=== PATIENT | female | born 2000 | race Caucasian/White ===

== ENCOUNTER → 2022-10-17 07:58 | Outpatient (CLI) | payer OTHER, SELFPAY ==
[2022-10-17 19:00] LABS: Basophils # 0.1 K/mm3 (0-0.2); Basophils % 0.9 % (0.1-2.0); Eosinophils # 0.2 K/mm3 (0.0-0.4); Eosinophils % 2.5 % (0.1-12.0); Hematocrit 45.6 % (37.0-47.0); Hemoglobin 14.7 g/dL (12.2-16.2); Lymphocytes # 2.2 K/mm3 (0.7-4.5); Lymphocytes % 24.4 % (10-50); Mean Corpuscular HGB Conc 32.2 g/dL (31.8-35.4); Mean Corpuscular Volume 90.1 fl (81-99); Monocytes # 0.4 K/mm3 (0.1-1.0); Monocytes % 4.3 % (1.7-9.3); Neutrophils # 6.2 K/mm3 (1.8-7.8); Platelet Count 350 K/mm3 (142-424); Red Blood Count 5.06 M/mm3 (4.20-5.40); Red Cell Distribution Width 14.2 % (11.5-17.5); White Blood Count 9.1 K/mm3 (4.8-10.8)
[2022-10-17 19:02] LABS: Chloride 105 mmol/L (98-107)
[2022-10-17 19:03] LABS: Potassium 4.3 mmoL/L (3.5-5.1); Sodium 141 mmol/L (136-145)
[2022-10-17 19:05] LABS: Alanine Aminotransferase 23 U/L (12-78); Anion Gap 14.3 mEq/L (5-15); Aspartate Amino Transferase 28 U/L (14-36); Blood Urea Nitrogen 13 mg/dl (7-17); Carbon Dioxide 26 mmol/L (22.0-30.0); Estimated Glomerular Filt Rate 126 ml/min (>60); GFR (African American) 153 ML/MIN (>60)
[2022-10-17 19:06] LABS: Albumin Level 4.8 g/dl (3.5-5.0); Albumin/Globulin Ratio 1.5 (1.1-1.8); Alkaline Phosphatase 66 U/L (38-126); Bilirubin,Total 0.4 mg/dl (0.2-1.3); Calcium 9.7 mg/dl (8.4-10.2); Chol/HDL Ratio 3.1 (1-3.5); Cholesterol 208 mg/dl (140-200); Globulin 3.2 g/dL (1.3-3.2); Glucose 96 mg/dl (74-100); HDL Cholesterol 68 mg/dl (40-60); Triglycerides 90 mg/dl (30-150); VLDL Cholesterol 18 mg/dL (0-40)
[2022-10-17 19:14] LABS: C-Reactive Protein 8.5 mg/L (0-4)
[2022-10-17 19:17] LABS: Erythrocyte Sedimentation Rate 14 mm/hr (0-20)
[2022-10-17 19:22] LABS: 25-OH Vitamin D, Total 16.4 ng/mL (30-100)
[2022-10-17 19:37] LABS: Thyroid Stimulating Hormone 1.13 uIU/mL (0.465-4.68)
[2022-10-19 11:17] LABS: RA Latex Turbid. <10.0 IU/mL (<14.0)
[2022-10-19 12:12] LABS: Anti-Cyclic Citrullinated Pept 0 units (0-19)
[2022-10-19 16:33] LABS: Anti-Centromere B Antibodies <0.2 AI (0.0-0.9); Anti-DNA (DS) Ab Qn <1 IU/mL (0-9); Anti-Jo-1 <0.2 AI (0.0-0.9); Anti-Smith Antibody <0.2 AI (0.0-0.9); Antichromatin Antibodies <0.2 AI (0.0-0.9); Antiscleroderma-70 Antibodies <0.2 AI (0.0-0.9); RNP Antibodies 0.2 AI (0.0-0.9); Sjogren's Anti-SS-A <0.2 AI (0.0-0.9); Sjogren's Anti-SS-B <0.2 AI (0.0-0.9)
[2022-10-19 16:33] LABS: Anti-DNA (DS) Ab Qn <1 IU/mL (0-9)
== END ==
PROVIDERS: PCP Physician Assistant; Visit Provider Physician Assistant
DX: R05.9 Cough, unspecified (principal); R30.0 Dysuria; M25.50 Pain in unspecified joint; E55.9 Vitamin D deficiency, unspecified
CPT/HCPCS: 80053; 80061; 82306; 84443; 85025; 85651; 86140; 86200; 86225; 86235; 86431; 87086

== ENCOUNTER → 2022-10-23 18:37 | Outpatient (CLI) | payer OTHER, SELFPAY | PROVIDERS: PCP Physician Assistant; Visit Provider Physician Assistant | DX: N39.0 Urinary tract infection, site not specified (principal); B95.4 Other streptococcus as the cause of diseases classified elsewhere | CPT/HCPCS: 87086; 87088; 87186 ==

== ENCOUNTER → 2022-11-05 14:30 | Outpatient (CLI) | payer OTHER, SELFPAY | PROVIDERS: PCP Physician Assistant; Visit Provider Physician Assistant | DX: M54.50 Low back pain, unspecified (principal) | CPT/HCPCS: 87086 ==

== ENCOUNTER 2022-11-08 11:16 | Emergency (ER) | payer OTHER, SELFPAY ==
[2022-11-08 11:28] VITALS: BP 146/72; PULSE 110; RESP 20; TEMP 37; O2SAT 100; BMI 34.7
[2022-11-08 11:53] VITALS: BP 141/70; PULSE 120; O2SAT 97
--- NOTE | 2022-11-08 11:57 | CT_ITS ---
FINAL REPORT TECHNIQUE: Axial images of the head were obtained without contrast. Coronal reformatted images were also obtained.This study was performed with techniques to keep radiation doses as low as reasonably achievable (ALARA). Individualized dose reduction techniques using automated exposure control or adjustment of mA and/or kV according to the patient's size were employed. CLINICAL HISTORY: seizure-headaches COMPARISON: none FINDINGS: There is no evidence of intracranial hemorrhage or mass. The ventricular size is within normal limits. There is no evidence of shift of the midline structures. No abnormal extra axial fluid collection is identified. No skull abnormality is seen on the bone window images. IMPRESSION: No acute intracranial abnormality. Reviewed, Interpreted and Dictated by Sean Figueroa III, MD Transcribed by Nicole Palacio Authenticated and [facility]
[2022-11-08 12:00] VITALS: BP 138/77; PULSE 100; O2SAT 98
[2022-11-08 12:15] VITALS: BP 140/82; PULSE 98; O2SAT 97
[2022-11-08 12:17] LABS: Microscopic, Urine URINE MICROSCOPIC (MICROSCOPIC)
[2022-11-08 12:19] LABS: Basophils # 0.1 K/mm3 (0-0.2); Basophils % 1.5 % (0.1-2.0); Eosinophils # 0.4 K/mm3 (0.0-0.4); Hematocrit 38.4 % (37.0-47.0); Hemoglobin 12.8 g/dL (12.2-16.2); Lymphocytes # 1.6 K/mm3 (0.7-4.5); Lymphocytes % 24.2 % (10-50); Mean Corpuscular HGB Conc 33.4 g/dL (31.8-35.4); Mean Corpuscular Hemoglobin 28.4 pg (27.0-31.2); Mean Corpuscular Volume 84.8 fl (81-99); Mean Platelet Volume 7.3 fl (7.4-10.4); Monocytes # 0.3 K/mm3 (0.1-1.0); Monocytes % 3.9 % (1.7-9.3); Neutrophils # 4.2 K/mm3 (1.8-7.8); Neutrophils % 64.3 % (37.0-80.0); Platelet Count 293 K/mm3 (142-424); Red Blood Count 4.52 M/mm3 (4.20-5.40); Red Cell Distribution Width 14.3 % (11.5-17.5); White Blood Count 6.6 K/mm3 (4.8-10.8)
[2022-11-08 12:31] LABS: Alanine Aminotransferase 24 U/L (12-78); Albumin Level 4.2 g/dl (3.5-5.0); Albumin/Globulin Ratio 1.4 (1.1-1.8); Alkaline Phosphatase 54 U/L (38-126); Anion Gap 11.8 mEq/L (5-15); Aspartate Amino Transferase 27 U/L (14-36); Bilirubin,Total 0.3 mg/dl (0.2-1.3); Blood Urea Nitrogen 11 mg/dl (7-17); Calcium 9.1 mg/dl (8.4-10.2); Carbon Dioxide 25 mmol/L (22.0-30.0); Chloride 110 mmol/L (98-107); Creatinine Clearance Estimated 228 mL/min (50-200); Estimated Glomerular Filt Rate 126 ml/min (>60); GFR (African American) 153 ML/MIN (>60); Globulin 3.1 g/dL (1.3-3.2); Glucose 97 mg/dl (74-100); Potassium 3.8 mmoL/L (3.5-5.1); Sodium 143 mmol/L (136-145); Total Protein,Serum 7.3 g/dl (6.3-8.2)
[2022-11-08 12:34] LABS: Appearance,Urine CLEAR (Clear); Bilirubin,Urine Negative (Negative); Blood, Urine Negative (Negative); Color,Urine YELLOW (Yellow); Glucose,Urine (UA) Negative (Negative); Ketones,Urine Negative (Negative); Leukocyte Esterase,Urine Negative (Negative); Nitrate,Urine Negative (Negative); PH,Urine 5.5 (5.0-8.5); Protein,Urine Negative (Negative); Specific Gravity, Urine <= 1.005 (1.005-1.030); Urobilinogen,Urine 0.2 EU/dl (0.2)
[2022-11-08 12:36] LABS: Urine Pregnancy, HCG Qual. Negative (Negative)
[2022-11-08 12:53] LABS: WBC,Urine Occasional #/hpf (0-3)
[2022-11-08 12:58] LABS: Amphetamine/Metha Screen,Urine Negative ng/ml (<1000)
[2022-11-08 12:59] LABS: Barbiturates Screen,Urine Negative ng/ml (<200)
[2022-11-08 13:00] LABS: Benzodiazepines Screen,Urine Negative ng/ml (<200); Cannabinoid Screen,Urine Negative ng/ml (<50)
[2022-11-08 13:01] LABS: Cocaine Screen,Urine Negative ng/ml (<300)
[2022-11-08 13:02] LABS: Methadone Screen,Urine Negative ng/ml (<300)
[2022-11-08 13:03] LABS: Opiate Screen,Urine Negative ng/ml (<300)
[2022-11-08 13:04] LABS: Phencyclidine Screen,Urine Negative ng/ml (<25)
--- NOTE | 2022-11-08 14:38 | HMH.EDGENADL ---
Discharge Plan Disposition Patient Disposition: Home, Self-Care Condition: Good Prescriptions Prescriptions: No Action penicillin V potassium 500 mg tablet 500 mg PO QID Qty: 40 0RF venlafaxine [Effexor XR] 37.5 mg capsule,extended release 24hr 37.5 mg PO DAILY Qty: 90 0RF Vraylar 1.5 mg capsule 1.5 mg PO DAILY Qty: 30 1RF fluticasone propionate [Flonase Allergy Relief] 50 mcg/actuation spray,suspension 1 spray intranasal QDAY 30 Days Qty: 9.9 0RF Rx Instructions: administer into each nostril ergocalciferol (vitamin D2) 1,250 mcg (50,000 unit) capsule 1,250 mcg PO WEEKLY Qty: 14 3RF cholecalciferol (vitamin D3) 50 mcg (2,000 unit) capsule 50 mcg PO DAILY Qty: 90 3RF Referrals Follow up/Referrals: Provider,Referral, MD [Primary Care Provider] - See instructions Activity Restrictions/Add. Instructions Additional Instructions/Restrictions: Continue current medications and follow-up with your primary care provider and counselor. Additional instructions for SEIZURE OR LOSS OF CONSCIOUSNESS/POSSIBLE SEIZURE/SEIZURE-LIKE ACTIVITY: NO DRIVING, BIKE RIDING, SWIMMING, TUB BATHING, LADDERS UNTIL CLEARED BY DOCTOR. NO ALCOHOL OR STREET DRUGS. GET 8 HOURS OF SLEEP PER NIGHT. RETURN IF SEIZURE RECURS. Clinical Impressions Clinical Impression: Pseudoseizure, Conversion disorder Instructions Patient Instructions: Conversion Disorder, Psychogenic Nonepileptic Seizures Discharge ED Provider: Eros Boland General Adult HPI General Chief complaint: Seizure Stated complaint: seizure Time Seen by Provider: 11/08/22 14:38 Mode of Arrival: EMS Source of Information: Patient Limitations: No Limitations Description of Symptoms (Recalled from ER Triage Doc. by RN): pt to ed c/o seizure. pt states she has a hx of conversion reactions. pt states her episodes are random and uncontrolled. episodes last approx 20 seconds with no postictal state. pt states she is weak. pt states she has been having headaches regularly. History of Present Illness HPI narrative: The patient is brought in by ambulance. She says she had a seizure . She says she has a history of seizure-like activity but has been diagnosed as having a conversion disorder. She does not require any anticonvulsant medication. She is on mood stabilizers. She says she was at her counselors today and began feeling odd and then reportedly had brief seizure-like activity without postictal state. States she has been sick for about a month. She has had bilateral ear infections and urinary tract infection. She was treated for that and then on 11/05/2022 saw her primary care provider, Carrol Wyatt, and was diagnosed with strep throat and a UTI. She has been on penicillin for that. Her throat is feeling better. Related Data Previous Rx's Medication Instructions Recorded cariprazine 1.5 mg capsule 1.5 mg PO DAILY #30 caps 09/25/22 (Vraylar) venlafaxine 37.5 mg 37.5 mg PO DAILY #90 caps 09/25/22 capsule,extended release 24 hr (Effexor XR) fluticasone propionate 50 1 spray intranasal QDAY 30 days 10/17/22 mcg/actuation nasal #9.9 grams spray,suspension (Flonase Allergy Relief) cholecalciferol (vitamin D3) 50 50 mcg PO DAILY #90 caps 10/19/22 mcg (2,000 unit) capsule ergocalciferol (vitamin D2) 1,250 1,250 mcg PO WEEKLY #14 caps 10/19/22 mcg (50,000 unit) capsule penicillin V potassium 500 mg 500 mg PO QID #40 tabs 11/05/22 tablet Allergies Allergy/AdvReac Type Severity Reaction Status Date / Time No Known Allergies Allergy Verified 11/05/22 14:31 [facility] Disclaimer: The information contained in this section may have been updated after the patient was seen, as this information can be updated by other users. Medical History Conversion disorder Posttraumatic stress disorder Psychosis Family History Fa
[2022-11-08 15:05] VITALS: BP 116/55; PULSE 82; RESP 18; TEMP 37; O2SAT 99
== END 2022-11-08 15:05 | disposition home or self-care (01) ==
PROVIDERS: Emergency Provider Emergency Medicine
DX: R56.9 Unspecified convulsions (principal); F44.4 Conversion disorder with motor symptom or deficit; F43.89 Other reactions to severe stress; Z81.8 Family history of other mental and behavioral disorders; Z82.49 Family history of ischemic heart disease and other diseases of the circulatory system; Z83.42 Family history of familial hypercholesterolemia; Z83.2 Family history of diseases of the blood and blood-forming organs and certain disorders involving the immune mechanism; Z82.5 Family history of asthma and other chronic lower respiratory diseases
CPT/HCPCS: 70450; 80053; 80305; 81001; 81025; 85025; 99285

== ENCOUNTER 2022-11-27 10:10 | Emergency (ER) | payer OTHER, SELFPAY ==
[2022-11-27] VITALS (8 sets, daily range): BP systolic 102–133; BP diastolic 55–99; PULSE 72–109; RESP 18; TEMP 36.7–37; O2SAT 96–99; BMI 33.9
--- NOTE | 2022-11-27 10:39 | PC.NURSE ---
DR MARSHALL AT BEDSIDE
--- NOTE | 2022-11-27 10:39 | PC.NURSE ---
TROY HINTON at
[2022-11-27 10:53] LABS: Microscopic, Urine URINE MICROSCOPIC (MICROSCOPIC)
[2022-11-27 10:55] LABS: Appearance,Urine CLEAR (Clear); Bilirubin,Urine Negative (Negative); Blood, Urine 2+ (Negative); Color,Urine YELLOW (Yellow); Glucose,Urine (UA) Negative (Negative); Ketones,Urine Negative (Negative); Leukocyte Esterase,Urine TRACE (Negative); Nitrate,Urine Negative (Negative); PH,Urine 5.5 (5.0-8.5); Protein,Urine Negative (Negative); Urobilinogen,Urine 0.2 EU/dl (0.2)
--- NOTE | 2022-11-27 10:56 | HMH.EDGENADL ---
Discharge Plan Disposition Patient Disposition: Home, Self-Care Condition: Good Prescriptions Prescriptions: No Action chlorpromazine 50 mg tablet 50 mg PO .COMPLEX Qty: 45 2RF Rx Instructions: 50 mg orally take 1/2 tablet in the am; and 1 tablet at bedtime; venlafaxine [Effexor XR] 37.5 mg capsule,extended release 24hr 37.5 mg PO DAILY Qty: 90 0RF penicillin V potassium 500 mg tablet 500 mg PO QID Qty: 40 0RF fluticasone propionate [Flonase Allergy Relief] 50 mcg/actuation spray,suspension 1 spray intranasal QDAY 30 Days Qty: 9.9 0RF Rx Instructions: administer into each nostril ergocalciferol (vitamin D2) 1,250 mcg (50,000 unit) capsule 1,250 mcg PO WEEKLY Qty: 14 3RF cholecalciferol (vitamin D3) 50 mcg (2,000 unit) capsule 50 mcg PO DAILY Qty: 90 3RF Referrals Follow up/Referrals: Carrol Wyatt PA [Primary Care Provider] - See instructions Clinical Impressions Clinical Impression: Abdominal pain, Diarrhea Instructions Patient Instructions: DI for Acute Abdominal Pain Discharge ED Provider: Beau Acosta General Adult HPI General Chief complaint: Abdominal Pain Stated complaint: RT abd pain vomiting bloody stool fever Time Seen by Provider: 11/27/22 10:15 Mode of Arrival: Ambulatory Limitations: No Limitations Description of Symptoms (Recalled from ER Triage Doc. by RN): PT REPORTS RIGHT SIDED ABDOMINAL PAIN SINCE SATURDAY. PAIN WAS WORSE YESTERDAY. VOMITING LAST NIGHT, FEVER AND ONE EPISODE OF BLOODY DIARRHEA. RECENTLY FINISHED ABX FOR PNEUMONIA ADN STREP. LAST TOOK TYLENOL THIS AM History of Present Illness HPI narrative: This is a 22-year-old female with history of chronic gastritis numerous polyps identified on colonoscopy status post removal (none were cancerous or needed follow-up), IBS with chronic diarrhea who is presenting with diarrhea and abdominal pain. Patient states that she is struggled with diarrhea for months and years. She has received upper GI scope demonstrating peptic ulcer disease and gastritis without obvious acute bleed. She has also received colonoscopy during which numerous polyps were removed, however none were considered cancerous or requiring follow-up. Patient also has recent history of numerous infections including strep pharyngitis, pneumonia, UTI for which she just ended antibiotic course. She has been having diarrhea for the past 1 week. Initially 1 episode of bright to dark blood, but no blood since day 1 of diarrhea. She has since developed abdominal pain that is lower abdominal, cramping, 6-8 out of 10, does not radiate. Associated with decreased p.o. intake, but no objective fevers, overlying skin changes, urinary symptoms, neurologic deficits, chest pain, shortness of breath, or any other concerns. Related Data Previous Rx's Medication Instructions Recorded fluticasone propionate 50 1 spray intranasal QDAY 30 days 10/17/22 mcg/actuation nasal #9.9 grams spray,suspension (Flonase Allergy Relief) cholecalciferol (vitamin D3) 50 50 mcg PO DAILY #90 caps 10/19/22 mcg (2,000 unit) capsule ergocalciferol (vitamin D2) 1,250 1,250 mcg PO WEEKLY #14 caps 10/19/22 mcg (50,000 unit) capsule penicillin V potassium 500 mg 500 mg PO QID #40 tabs 11/05/22 tablet chlorpromazine 50 mg tablet 50 mg PO .COMPLEX #45 tabs 11/23/22 venlafaxine 37.5 mg 37.5 mg PO DAILY #90 caps 11/23/22 capsule,extended release 24 hr (Effexor XR) Allergies Allergy/AdvReac Type Severity Reaction Status Date / Time No Known Allergies Allergy Verified 11/23/22 11:34 [facility] Disclaimer: The information contained in this section may have been updated after the patient was seen, as this information can be updated by other users. Medical History Conversion disorder Posttraumatic stress disorder Psychosis Family History Father
[2022-11-27 10:57] LABS: Basophils # 0.1 K/mm3 (0-0.2); Basophils % 1.1 % (0.1-2.0); Eosinophils # 0.3 K/mm3 (0.0-0.4); Eosinophils % 4.2 % (0.1-12.0); Hematocrit 42.9 % (37.0-47.0); Hemoglobin 13.9 g/dL (12.2-16.2); Lymphocytes # 1.6 K/mm3 (0.7-4.5); Lymphocytes % 20.9 % (10-50); Mean Corpuscular HGB Conc 32.5 g/dL (31.8-35.4); Mean Corpuscular Hemoglobin 28.6 pg (27.0-31.2); Mean Platelet Volume 7.3 fl (7.4-10.4); Monocytes # 0.4 K/mm3 (0.1-1.0); Monocytes % 5.4 % (1.7-9.3); Neutrophils # 5.3 K/mm3 (1.8-7.8); Neutrophils % 68.4 % (37.0-80.0); Platelet Count 250 K/mm3 (142-424); Red Blood Count 4.87 M/mm3 (4.20-5.40); Red Cell Distribution Width 14.6 % (11.5-17.5); White Blood Count 7.8 K/mm3 (4.8-10.8)
[2022-11-27 11:04] LABS: Chloride 109 mmol/L (98-107); Potassium 4.3 mmoL/L (3.5-5.1); Sodium 142 mmol/L (136-145)
[2022-11-27 11:07] LABS: Alanine Aminotransferase 20 U/L (12-78); Albumin Level 4.6 g/dl (3.5-5.0); Albumin/Globulin Ratio 1.3 (1.1-1.8); Alkaline Phosphatase 58 U/L (38-126); Anion Gap 9.3 mEq/L (5-15); Aspartate Amino Transferase 24 U/L (14-36); Bilirubin,Total 0.6 mg/dl (0.2-1.3); Blood Urea Nitrogen 10 mg/dl (7-17); Calcium 9.2 mg/dl (8.4-10.2); Carbon Dioxide 28 mmol/L (22.0-30.0); Creatinine Clearance Estimated 191 mL/min (50-200); Estimated Glomerular Filt Rate 106 ml/min (>60); GFR (African American) 128 ML/MIN (>60); Globulin 3.5 g/dL (1.3-3.2); Glucose 98 mg/dl (74-100); Lipase 46 U/L (23-300); Total Protein,Serum 8.1 g/dl (6.3-8.2)
[2022-11-27 11:08] LABS: Lactic Acid 1.1 mmol/L (0.7-2.1)
[2022-11-27 11:09] LABS: HCG Qualitative, Serum Negative (Negative)
[2022-11-27 11:09] LABS: Bacteria,Urine Trace /lpf; WBC,Urine Occasional #/hpf (0-3)
--- NOTE | 2022-11-27 11:54 | CT_ITS ---
FINAL REPORT CLINICAL HISTORY: RLQ, suprapubic crampong abd pain. guarding FINDINGS: CT OF THE ABDOMEN AND PELVIS WITH CONTRAST Axial CT images of the abdomen and pelvis were obtained after the administration of iv contrast. Coronal reformatted images were also obtained and reviewed.This study was performed with techniques to keep radiation doses as low as reasonably achievable (ALARA). Individualized dose reduction techniques using automated exposure control or adjustment of mA and/or kV according to the patient's size were employed. Abdomen: The lung bases are clear. The heart is normal in size. The liver has an unremarkable appearance, without evidence of mass or biliary ductal dilatation. The spleen is unremarkable. No adrenal mass is present. The pancreas has an unremarkable appearance. The kidneys are normal, without evidence of mass or hydronephrosis. The aorta is normal in caliber. There is no free fluid or adenopathy. No mass or abnormal fluid collection is seen. Pelvis: The appendix unremarkable. The urinary bladder is unremarkable. No inflammatory process is seen. There is no evidence of mass or adenopathy. There is no evidence of bowel obstruction. IMPRESSION: No evidence of acute intra-abdominal process. Reviewed, Interpreted and Dictated by Sean Figueroa III, MD Transcribed by Magalys Ontiveros Authenticated and [facility]
--- NOTE | 2022-11-27 12:21 | PC.NURSE ---
PT RETURNED FROM CT
--- NOTE | 2022-11-27 12:31 | PC.NURSE ---
DR MARSHALL AT BEDSIDE TO UPDATE PT AND FAMILY
--- NOTE | 2022-11-27 13:38 | PC.NURSE ---
DR MARSHALL AT BEDSIDE TO UPDATE PT AND FAMILY
== END 2022-11-27 13:48 | disposition home or self-care (01) ==
PROVIDERS: Emergency Provider Emergency Medicine; PCP Physician Assistant
DX: R10.9 Unspecified abdominal pain (principal); R11.10 Vomiting, unspecified; R19.7 Diarrhea, unspecified; K58.0 Irritable bowel syndrome with diarrhea; Z82.49 Family history of ischemic heart disease and other diseases of the circulatory system; Z82.5 Family history of asthma and other chronic lower respiratory diseases; Z81.8 Family history of other mental and behavioral disorders; Z83.2 Family history of diseases of the blood and blood-forming organs and certain disorders involving the immune mechanism; Z83.42 Family history of familial hypercholesterolemia
CPT/HCPCS: 74177; 80053; 81001; 83605; 83690; 84703; 85025; 96360; 99285; Q9967

== ENCOUNTER → 2022-12-12 15:56 | Outpatient (CLI) | payer OTHER, SELFPAY | PROVIDERS: PCP Physician Assistant; Visit Provider Physician Assistant | DX: R55 Syncope and collapse (principal) | CPT/HCPCS: 93225; 93226 ==

== ENCOUNTER → 2022-12-14 14:21 | Outpatient (CLI) | payer OTHER, SELFPAY ==
--- NOTE | 2022-12-14 14:27 | US_ITS ---
PROCEDURE INFORMATION: Exam: US Left Breast, Complete Exam date and time: 12/14/2022 3:03 PM Age: 22 years old Clinical indication: Concern for left breast pain. TECHNIQUE: Imaging protocol: Complete ultrasound of all four quadrants of the left breast and the retroareolar regions, including ultrasound of the axilla when performed. COMPARISON: No relevant prior studies available. FINDINGS: Breast: Left sonography, all 4 quadrants, retroareolar and axilla. No sonographic findings demonstrated with particular attention to the area of pain at 10 o'clock 5 cm from the nipple. Sonographically unremarkable left axillary lymph node. IMPRESSION: Negative sonography with history of left breast pain. Further evaluation of a painful abnormality should be based on clinical grounds regardless of radiographic findings or lack thereof. Annual screening mammogram recommended at age 40, unless otherwise clinically indicated. ASSESSMENT: BI-RADS Category 1: Negative
== END ==
PROVIDERS: PCP Physician Assistant; Visit Provider Physician Assistant
DX: N63.20 Unspecified lump in the left breast, unspecified quadrant (principal)
CPT/HCPCS: 76641

== ENCOUNTER 2023-04-04 14:14 | Emergency (ER) | payer OTHER, SELFPAY ==
[2023-04-04 14:15] VITALS: BP 138/98; PULSE 97; RESP 18; TEMP 37; O2SAT 99; BMI 36.3
--- NOTE | 2023-04-04 14:28 | HMH.EDGENADL ---
Discharge Plan Disposition Patient Disposition: Home, Self-Care Prescriptions Prescriptions: No Action chlorpromazine 50 mg tablet 50 mg PO .COMPLEX Qty: 45 2RF Rx Instructions: 50 mg orally take 1/2 tablet in the am; and 1 tablet at bedtime; venlafaxine [Effexor XR] 37.5 mg capsule,extended release 24hr 37.5 mg PO DAILY Qty: 90 0RF fluticasone propionate [Flonase Allergy Relief] 50 mcg/actuation spray,suspension 1 spray intranasal QDAY 30 Days Qty: 9.9 0RF Rx Instructions: administer into each nostril ergocalciferol (vitamin D2) 1,250 mcg (50,000 unit) capsule 1,250 mcg PO WEEKLY Qty: 14 3RF cholecalciferol (vitamin D3) 50 mcg (2,000 unit) capsule 50 mcg PO DAILY Qty: 90 3RF Referrals Follow up/Referrals: Carrol Wyatt PA [Primary Care Provider] - See instructions Activity Restrictions/Add. Instructions Additional Instructions/Restrictions: You may take Tylenol and ibuprofen as needed for your pain otherwise follow with your primary care doctor. Your work-up today was unremarkable for emergency standpoint. Clinical Impressions Clinical Impression: Minor head injury, Syncope, Post concussion syndrome, Cervical strain, Fatigue Discharge ED Provider: Keny Steiner General Adult HPI General Chief complaint: Dizziness Stated complaint: Fall 04/02 head pain, dizzy, nausea, neck pain Time Seen by Provider: 04/04/23 14:27 Mode of Arrival: Ambulatory Source of Information: Patient Limitations: No Limitations Description of Symptoms (Recalled from ER Triage Doc. by RN): c/o head/neck pain, nausea, blurry vision and dizziness after falling yesterday. Pt states that she fell back into concrete with LOC, unsure time she was out. Today she has been getting blurry vision about every 15 minutes. History of Present Illness HPI narrative: Patient is a 22-year-old female presenting today with head and neck injury after a fall from 2 days ago. She states that she had been feeling lightheaded and just fatigued over the last 3 weeks no other symptoms in particular including nausea vomiting chest pain abdominal pain changes in menstrual cycle etc. She states that 2 days ago she just felt very tired and she felt lightheaded and lost consciousness had a syncopal episode and fell and hit her head on the posterior aspect of her head neck. She had some persistent intermittent blurred vision and headache since that time. No changes in mental status. Mainly her head and neck pain that brought her to the emergency department today. Related Data Previous Rx's Medication Instructions Recorded fluticasone propionate 50 1 spray intranasal QDAY 30 days 10/17/22 mcg/actuation nasal #9.9 grams spray,suspension (Flonase Allergy Relief) cholecalciferol (vitamin D3) 50 50 mcg PO DAILY #90 caps 10/19/22 mcg (2,000 unit) capsule ergocalciferol (vitamin D2) 1,250 1,250 mcg PO WEEKLY #14 caps 10/19/22 mcg (50,000 unit) capsule chlorpromazine 50 mg tablet 50 mg PO .COMPLEX #45 tabs 02/14/23 venlafaxine 37.5 mg 37.5 mg PO DAILY #90 caps 02/14/23 capsule,extended release 24 hr (Effexor XR) Allergies Allergy/AdvReac Type Severity Reaction Status Date / Time No Known Allergies Allergy Verified 04/04/23 13:05 [facility] Disclaimer: The information contained in this section may have been updated after the patient was seen, as this information can be updated by other users. Medical History Conversion disorder Posttraumatic stress disorder Psychosis Family History Father FHx: mental illness bipolar disorder; anger issues; substance abuse Coronary artery disease Hyperlipidemia Sister FHx: mental illness depression Anemia Sister FHx: mental illness depression; bipolar Sister FHx: mental illness bipolar; depression Sister Asthma Migraines
--- NOTE | 2023-04-04 14:29 | XR_ITS ---
FINAL REPORT CLINICAL HISTORY: Chest pain after a fall FINDINGS: Two views of the chest were obtained. The heart size and pulmonary vascularity are within normal limits. The mediastinum is normal. No acute pulmonary abnormality is identified. There is no pneumothorax. The bony thorax is intact. IMPRESSION: No active cardiopulmonary disease. Reviewed, Interpreted and Dictated by Sean Figueroa III, MD Transcribed by Dilia Rodriguez Authenticated and [facility]
--- NOTE | 2023-04-04 14:31 | ECG_ITS ---
APPROVED REPORT Exam: Resting ECG HR:91 bpm ECG Measurements Heart Rate 91 AXES IN 153 P 7 QRSd 80 QRS -10 QT 347 T 16 QTc 396 Conclusion SINUS RHYTHM LOW QRS VOLTAGE IN PRECORDIAL LEADS [QRS DEFLECTION < 1.0 mV IN CHEST LEADS] BORDERLINE ECG UNCONFIRMED REPORT Electronically signed by : Rashawn Espino MD 04/04/2023 22:19:10
--- NOTE | 2023-04-04 14:33 | PC.NURSE ---
Dr. Steiner at BS for pt eval
--- NOTE | 2023-04-04 14:41 | CT_ITS ---
FINAL REPORT CLINICAL HISTORY: fall, head/neck injury COMPARISON: 11/08/2022 FINDINGS: Axial images of the head were obtained without contrast. Coronal reformatted images were also obtained.This study was performed with techniques to keep radiation doses as low as reasonably achievable (ALARA). Individualized dose reduction techniques using automated exposure control or adjustment of mA and/or kV according to the patient''s size were employed. There is no evidence of intracranial hemorrhage or mass. The ventricular size is within normal limits. There is no evidence of shift of the midline structures. No abnormal extra axial fluid collection is identified. No skull abnormality is seen on the bone window images. IMPRESSION: No acute intracranial abnormality. Reviewed, Interpreted and Dictated by Sean Figueroa III, MD Transcribed by Dilia Rodriguez Authenticated and [facility]
--- NOTE | 2023-04-04 14:41 | CT_ITS ---
FINAL REPORT CLINICAL HISTORY: fall, head/neck injury FINDINGS: Axial CT images of the cervical spine were obtained without contrast. Sagittal and coronal reformatted images were also obtained. This study was performed with techniques to keep radiation doses as low as reasonably achievable (ALARA). Individualized dose reduction techniques using automated exposure control or adjustment of mA and/or kV according to the patient''s size were employed. There is no evidence of fracture or dislocation. The bony alignment is normal. The disc spaces are preserved. There is no evidence of canal stenosis. No paraspinous soft tissue abnormality is seen. Limited images of the upper thorax are unremarkable. IMPRESSION: No fracture or acute bony abnormality identified. Reviewed, Interpreted and Dictated by Sean Figueroa III, MD Transcribed by Dilia Rodriguez Authenticated and [facility]
[2023-04-04 15:00] VITALS: BP 132/80; PULSE 90; O2SAT 98
[2023-04-04 15:10] LABS: Chloride 104 mmol/L (98-107); HCG Qualitative, Serum Negative (Negative)
[2023-04-04 15:11] LABS: Sodium 141 mmol/L (136-145)
[2023-04-04 15:13] LABS: Alanine Aminotransferase 33 U/L (12-78); Albumin Level 4.7 g/dl (3.5-5.0); Albumin/Globulin Ratio 1.2 (1.1-1.8); Alkaline Phosphatase 62 U/L (38-126); Aspartate Amino Transferase 33 U/L (14-36); Bilirubin,Total 0.3 mg/dl (0.2-1.3); Blood Urea Nitrogen 10 mg/dl (7-17); Calcium 9.7 mg/dl (8.4-10.2); Carbon Dioxide 24 mmol/L (22.0-30.0); Creatinine Clearance Estimated 205 mL/min (50-200); Estimated Glomerular Filt Rate 106 ml/min (>60); GFR (African American) 128 ML/MIN (>60); Globulin 3.8 g/dL (1.3-3.2); Glucose 95 mg/dl (74-100); Total Protein,Serum 8.5 g/dl (6.3-8.2)
[2023-04-04 15:31] VITALS: BP 130/82; PULSE 74; O2SAT 97
[2023-04-04 15:31] LABS: Troponin I < 0.01 ng/ml (0.00-0.034)
--- NOTE | 2023-04-04 16:31 | PC.NURSE ---
PT IS SLEEPING IN BED,CALL LIGHT AT BS
[2023-04-04 16:42] VITALS: BP 108/57; PULSE 81; RESP 16; TEMP 37; O2SAT 97
[2023-04-04 16:47] LABS: Basophils % 0.3 % (0.1-2.0); Eosinophils # 0.2 K/mm3 (0.0-0.4); Eosinophils % 2.1 % (0.1-12.0); Hematocrit 42.9 % (37.0-47.0); Hemoglobin 13.7 g/dL (12.2-16.2); Lymphocytes # 1.9 K/mm3 (0.7-4.5); Mean Corpuscular HGB Conc 31.9 g/dL (31.8-35.4); Mean Corpuscular Hemoglobin 27.4 pg (27.0-31.2); Mean Corpuscular Volume 85.9 fl (81-99); Mean Platelet Volume 7.5 fl (7.4-10.4); Monocytes # 0.4 K/mm3 (0.1-1.0); Monocytes % 4.3 % (1.7-9.3); Neutrophils # 5.7 K/mm3 (1.8-7.8); Neutrophils % 70.4 % (37.0-80.0); Platelet Count 264 K/mm3 (142-424); Red Blood Count 4.99 M/mm3 (4.20-5.40); White Blood Count 8.1 K/mm3 (4.8-10.8)
== END 2023-04-04 16:42 | disposition home or self-care (01) ==
PROVIDERS: Emergency Provider Student in an Organized Health Care Education/Training Program; PCP Physician Assistant; Referring Provider Physician Assistant
DX: S09.8XXA Other specified injuries of head, initial encounter (principal); R55 Syncope and collapse; S16.1XXA Strain of muscle, fascia and tendon at neck level, initial encounter; R53.83 Other fatigue; F44.9 Dissociative and conversion disorder, unspecified; F43.10 Post-traumatic stress disorder, unspecified; W19.XXXA Unspecified fall, initial encounter
CPT/HCPCS: 70450; 71046; 72125; 80053; 84484; 84703; 85025; 93005; 96361; 96374; 96375; 99285

== ENCOUNTER 2023-06-18 17:01 | Emergency (ER) | payer OTHER, SELFPAY ==
[2023-06-18] VITALS (7 sets, daily range): BP systolic 130–193; BP diastolic 90–116; PULSE 112–143; RESP 20–26; TEMP 36.7–37; O2SAT 97–98; BMI 32.3
--- NOTE | 2023-06-18 17:10 | ECG_ITS ---
APPROVED REPORT Exam: Resting ECG HR:121 bpm ECG Measurements Heart Rate 121 AXES IN 164 P 42 QRSd 84 QRS 21 QT 359 T 59 QTc 431 Conclusion SINUS TACHYCARDIA LOW QRS VOLTAGE IN PRECORDIAL LEADS [QRS DEFLECTION < 1.0 mV IN CHEST LEADS] NONSPECIFIC T-WAVE ABNORMALITY ABNORMAL RHYTHM ECG UNCONFIRMED REPORT Electronically signed by : Rashawn Espino MD 06/21/2023 16:12:30
--- NOTE | 2023-06-18 17:13 | XR_ITS ---
PROCEDURE INFORMATION: Exam: XR Chest Exam date and time: 06/18/2023 5:26 PM Age: 22 years old Clinical indication: Shortness of breath; Additional info: SOA TECHNIQUE: Imaging protocol: Radiologic exam of the chest. Views: 1 view. COMPARISON: CR XR CHEST 2V 04/04/2023 3:37 PM FINDINGS: Lungs: Unremarkable. No consolidation. Pleural spaces: Unremarkable. No pleural effusion. No pneumothorax. Heart/Mediastinum: Unremarkable. No cardiomegaly. Bones/joints: Unremarkable. IMPRESSION: No acute findings.
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
[2023-06-18 17:51] LABS: VBG Base Excess -5.5 mmol/L (-2.4-2.3); VBG HCO3 18.9 mmol/L (23-30); VBG Oxygen Saturation 99.1 % (50-70); VBG PCO2 29.8 mmol/L (35-51); VBG PH 7.42 mmol/L (7.31-7.41); VBG PO2 153.9 mmol/L (28-40); VBG Total CO2 19.9 mmol/L (23-27)
[2023-06-18 17:52] LABS: Basophils % 0.3 % (0.1-2.0); Eosinophils # 0.4 K/mm3 (0.0-0.4); Eosinophils % 3.6 % (0.1-12.0); Hematocrit 40.6 % (37.0-47.0); Hemoglobin 13.4 g/dL (12.2-16.2); Lymphocytes # 1.4 K/mm3 (0.7-4.5); Lymphocytes % 14.4 % (10-50); Mean Corpuscular HGB Conc 32.9 g/dL (31.8-35.4); Mean Corpuscular Hemoglobin 28.6 pg (27.0-31.2); Mean Corpuscular Volume 86.8 fl (81-99); Mean Platelet Volume 7.9 fl (7.4-10.4); Monocytes # 0.4 K/mm3 (0.1-1.0); Neutrophils # 7.5 K/mm3 (1.8-7.8); Neutrophils % 77.7 % (37.0-80.0); Platelet Count 256 K/mm3 (142-424); Red Blood Count 4.67 M/mm3 (4.20-5.40); Red Cell Distribution Width 14.4 % (11.5-17.5); White Blood Count 9.7 K/mm3 (4.8-10.8)
[2023-06-18 18:03] LABS: Chloride 109 mmol/L (98-107); Potassium 4.1 mmoL/L (3.5-5.1); Sodium 141 mmol/L (136-145)
[2023-06-18 18:05] LABS: Alanine Aminotransferase 60 U/L (12-78); Aspartate Amino Transferase 56 U/L (14-36); Blood Urea Nitrogen 9 mg/dl (7-17); Estimated Glomerular Filt Rate 126 ml/min (>60); GFR (African American) 153 ML/MIN (>60)
[2023-06-18 18:06] LABS: Albumin Level 4.3 g/dl (3.5-5.0); Albumin/Globulin Ratio 1.3 (1.1-1.8); Alkaline Phosphatase 53 U/L (38-126); Anion Gap 17.1 mEq/L (5-15); Bilirubin,Total 0.4 mg/dl (0.2-1.3); Calcium 8.7 mg/dl (8.4-10.2); Carbon Dioxide 19 mmol/L (22.0-30.0); Globulin 3.2 g/dL (1.3-3.2); Glucose 113 mg/dl (74-100); Total Protein,Serum 7.5 g/dl (6.3-8.2)
--- NOTE | 2023-06-18 18:18 | PC.NURSE ---
Addendum entered by Rianna Cochran RN 06/18/23 19:24: Dr. Younger was notified of this directly after it occurred. Original Note: Pt asked for staff to contact her family . There is a phone number in the system as Friend for Brisa Rockwell and pt states it is ok to contact them to get ahold of her sister Rossana . I called this number and they are going to collect pt's sister so we can speak to her. Shortly after this call, pt called back out to nurses' station and she reported what happened? Where am I? What is going on? She is not oriented to herself, she states I am not Joseline, I am Joseline's protector because she could not stay here anymore . Attempted to reorient pt to what occurred and for her ER visit. She was still maintained I am not Joseline. Did you give me something? You must have given me something if I am so foggy. I let her know we gave Ativan. Pt states Well that explains it, I should have told you it makes my mind very weird and off .
[2023-06-18 18:22] LABS: HCG Qualitative, Serum Negative (Negative)
--- NOTE | 2023-06-18 18:53 | PC.NURSE ---
pt walked to restroom with standby observation
== END 2023-06-18 19:35 | disposition home or self-care (01) ==
PROVIDERS: Emergency Provider Emergency Medicine; PCP Physician Assistant
DX: F44.5 Conversion disorder with seizures or convulsions (principal); F41.0 Panic disorder [episodic paroxysmal anxiety]; F43.10 Post-traumatic stress disorder, unspecified; R00.0 Tachycardia, unspecified
CPT/HCPCS: 71045; 80053; 82803; 84703; 85025; 93005; 96374; 99285

== ENCOUNTER → 2023-06-27 16:02 | Outpatient (CLI) | payer OTHER, SELFPAY ==
[2023-06-27 12:53] LABS: Basophils # 0.1 K/mm3 (0-0.2); Basophils % 0.6 % (0.1-2.0); Eosinophils # 0.2 K/mm3 (0.0-0.4); Eosinophils % 2.7 % (0.1-12.0); Hematocrit 42.6 % (37.0-47.0); Hemoglobin 13.5 g/dL (12.2-16.2); Lymphocytes % 22.9 % (10-50); Mean Corpuscular HGB Conc 31.8 g/dL (31.8-35.4); Mean Corpuscular Hemoglobin 27.6 pg (27.0-31.2); Mean Corpuscular Volume 86.9 fl (81-99); Mean Platelet Volume 7.6 fl (7.4-10.4); Monocytes # 0.5 K/mm3 (0.1-1.0); Monocytes % 5.5 % (1.7-9.3); Neutrophils # 5.8 K/mm3 (1.8-7.8); Neutrophils % 68.3 % (37.0-80.0); Platelet Count 267 K/mm3 (142-424); Red Cell Distribution Width 14.5 % (11.5-17.5); White Blood Count 8.5 K/mm3 (4.8-10.8)
[2023-06-27 13:33] LABS: Erythrocyte Sedimentation Rate 13 mm/hr (0-20)
[2023-06-27 13:43] LABS: Alanine Aminotransferase 33 U/L (12-78); Albumin Level 4.7 g/dl (3.5-5.0); Albumin/Globulin Ratio 1.6 (1.1-1.8); Alkaline Phosphatase 59 U/L (38-126); Anion Gap 14.6 mEq/L (5-15); Aspartate Amino Transferase 28 U/L (14-36); Bilirubin,Total 0.2 mg/dl (0.2-1.3); Blood Urea Nitrogen 8 mg/dl (7-17); Calcium 9.4 mg/dl (8.4-10.2); Carbon Dioxide 25 mmol/L (22.0-30.0); Chloride 104 mmol/L (98-107); Chol/HDL Ratio 3.4 (1-3.5); Cholesterol 201 mg/dl (140-200); Estimated Glomerular Filt Rate 126 ml/min (>60); GFR (African American) 153 ML/MIN (>60); Globulin 2.9 g/dL (1.3-3.2); Glucose 91 mg/dl (74-100); HDL Cholesterol 59 mg/dl (40-60); Potassium 4.6 mmoL/L (3.5-5.1); Sodium 139 mmol/L (136-145); Total Protein,Serum 7.6 g/dl (6.3-8.2); Triglycerides 122 mg/dl (30-150); Uric Acid 4.7 mg/dl (2.5-6.2); VLDL Cholesterol 24 mg/dL (0-40)
[2023-06-27 13:54] LABS: Direct LDL Cholesterol 92.32 mg/dL (100-129)
[2023-06-27 13:57] LABS: 25-OH Vitamin D, Total 54.9 ng/mL (30-100)
[2023-06-27 14:11] LABS: Thyroid Stimulating Hormone 1.57 uIU/mL (0.465-4.68)
== END ==
PROVIDERS: PCP Physician Assistant; Visit Provider Physician Assistant
DX: R53.83 Other fatigue (principal); E55.9 Vitamin D deficiency, unspecified; Z79.899 Other long term (current) drug therapy
CPT/HCPCS: 80053; 80061; 82306; 84443; 84550; 85025; 85651

== ENCOUNTER 2023-07-03 22:51 | Emergency (ER) | payer OTHER, SELFPAY ==
[2023-07-03 22:51] VITALS: BP 148/94; PULSE 113; RESP 18; TEMP 37; O2SAT 99; BMI 35.5
--- NOTE | 2023-07-03 23:13 | HMH.EDGENADL ---
Discharge Plan Disposition Patient Disposition: Home, Self-Care Condition: Good Prescriptions Prescriptions: New methocarbamol 750 mg tablet 750 mg PO Q8H Qty: 20 0RF lidocaine 5 % adhesive patch,medicated 1 patch topical DAILY Qty: 5 0RF Rx Instructions: 1 patch topically; apply to most painful area for up to 12 hours, then remove for 12 hours. No Action amoxicillin 875 mg tablet 875 mg PO BID Qty: 20 0RF prednisone 20 mg tablet 20 mg PO BID Qty: 10 0RF Rx Instructions: administer with food or milk fluticasone propionate [Flonase Allergy Relief] 50 mcg/actuation spray,suspension 1 spray intranasal QDAY 30 Days Qty: 9.9 0RF Rx Instructions: administer into each nostril chlorpromazine 50 mg tablet 50 mg PO .COMPLEX Qty: 45 2RF Rx Instructions: 50 mg orally take 1/2 tablet in the am; and 1 tablet at bedtime; venlafaxine [Effexor XR] 75 mg capsule,extended release 24hr 75 mg PO DAILY Qty: 30 1RF ergocalciferol (vitamin D2) 1,250 mcg (50,000 unit) capsule 1,250 mcg PO WEEKLY Qty: 14 3RF cholecalciferol (vitamin D3) 50 mcg (2,000 unit) capsule 50 mcg PO DAILY Qty: 90 3RF Referrals Follow up/Referrals: Mukund Finney DO [Staff Physician] - See instructions Provider,Referral, [Primary Care Provider] - See instructions Activity Restrictions/Add. Instructions Additional Instructions/Restrictions: You were evaluated in the emergency department today for back pain. Labs and imaging were reassuring. I believe your pain is caused by muscle spasm or disc bulge causing nerve pain. Use the prescribed medications as directed for pain management. Use the lidocaine patches up to 12 hours on and 12 hours off. Also take tylenol and ibuprofen regularly for pain management, do not exceed the recommended doses on the bottles. If your pain does not improve, call the orthopedist, Dr. Finney, for follow up and re-evaluation. Also make an appoint with your primary care physician for reevaluation in the next 2 to 3 days. Return to the ER with any new or worsening symptoms including but not limited to loss of bowel or bladder function or control, numbness of the inner thighs or genitals, or anything else you are concerned about. Clinical Impressions Clinical Impression: Low back pain Qualifiers: Chronicity: acute Back pain laterality: bilateral Sciatica presence: with sciatica Sciatica laterality: sciatica of left side Qualified Code(s): M54.42 - Lumbago with sciatica, left side Instructions Patient Instructions: DI for Low Back Pain Discharge ED Provider: Abby Oseguera General Adult HPI General Chief complaint: Back Pain/Injury Stated complaint: lower back pain, no accident Time Seen by Provider: 07/03/23 23:00 Mode of Arrival: Wheelchair Source of Information: Patient Limitations: No Limitations Description of Symptoms (Recalled from ER Triage Doc. by RN): low bilateral back pain x 5 days, denies n/v/fever History of Present Illness HPI narrative: This 23-year-old female presents to the emergency department with concerns of back pain. Patient states she has a history of anxiety, kidney infection, vitamin D deficiency. She states last week she was doing dishes bent partially over the sink when she had acute onset back pain. She states she has been taking amoxicillin and steroids from her doctor for an ear infection as well as for knee pain but this has not improved her back pain. She has also taken Motrin without improvement. She states that it got slightly better for a few days but has again significantly worsened and today became unbearable. She states that she has radiation down the left side of her back into the left leg. She states it is difficult to walk secondary to pain and her legs feel like Jell-O. Additionally, she states she is now having right-sided back pain. She states she is concerned for possible kidney infection. She states she had dysuria last wee
[2023-07-03 23:30] LABS: Microscopic, Urine URINE MICROSCOPIC (MICROSCOPIC)
[2023-07-03 23:42] LABS: Basophils # 0.1 K/mm3 (0-0.2); Basophils % 0.6 % (0.1-2.0); Eosinophils # 0.2 K/mm3 (0.0-0.4); Eosinophils % 1.7 % (0.1-12.0); Hematocrit 42.7 % (37.0-47.0); Hemoglobin 13.7 g/dL (12.2-16.2); Lymphocytes # 2.9 K/mm3 (0.7-4.5); Lymphocytes % 27.6 % (10-50); Mean Corpuscular HGB Conc 32.1 g/dL (31.8-35.4); Mean Corpuscular Hemoglobin 27.8 pg (27.0-31.2); Mean Corpuscular Volume 86.6 fl (81-99); Mean Platelet Volume 7.4 fl (7.4-10.4); Monocytes # 0.7 K/mm3 (0.1-1.0); Monocytes % 6.7 % (1.7-9.3); Neutrophils # 6.6 K/mm3 (1.8-7.8); Neutrophils % 63.4 % (37.0-80.0); Platelet Count 269 K/mm3 (142-424); Red Blood Count 4.92 M/mm3 (4.20-5.40); Red Cell Distribution Width 14.4 % (11.5-17.5); White Blood Count 10.5 K/mm3 (4.8-10.8)
[2023-07-03 23:43] LABS: Chloride 108 mmol/L (98-107)
[2023-07-03 23:44] LABS: Appearance,Urine CLEAR (Clear); Bilirubin,Urine Negative (Negative); Blood, Urine Negative (Negative); Color,Urine YELLOW (Yellow); Glucose,Urine (UA) Negative (Negative); Ketones,Urine Negative (Negative); Leukocyte Esterase,Urine Negative (Negative); Nitrate,Urine Negative (Negative); Protein,Urine Negative (Negative); Sodium 138 mmol/L (136-145); Urobilinogen,Urine 0.2 EU/dl (0.2)
[2023-07-03 23:47] LABS: Blood Urea Nitrogen 18 mg/dl (7-17); Calcium 8.8 mg/dl (8.4-10.2); Carbon Dioxide 22 mmol/L (22.0-30.0); Creatinine Clearance Estimated 174 mL/min (50-200); Estimated Glomerular Filt Rate 90 ml/min (>60); GFR (African American) 109 ML/MIN (>60); Glucose 100 mg/dl (74-100)
[2023-07-03 23:50] LABS: HCG Qualitative, Serum Negative (Negative)
--- NOTE | 2023-07-04 | CT_ITS ---
PROCEDURE INFORMATION: Exam: CT Abdomen And Pelvis With Contrast Exam date and time: 07/04/2023 12:25 AM Age: 23 years old Clinical indication: Abdominal pain and other: Low back; Patient HX: PT C/O abd pain/ low back pain; Additional info: Back pain sciatica, CVA tenderness, HX renal infxn TECHNIQUE: Imaging protocol: Computed tomography of the abdomen and pelvis with contrast. Radiation optimization: All CT scans at this facility use at least one of these dose optimization techniques: automated exposure control; mA and/or kV adjustment per patient size (includes targeted exams where dose is matched to clinical indication); or iterative reconstruction. Contrast material: ISOVUE; Contrast volume: 75 ml; Contrast route: IV; REPORTING DATA: Count of CT and Cardiac NM exams in prior 12 months: This patient has received 4 known CTs and 0 known cardiac nuclear medicine studies in the 12 months prior to the current study. COMPARISON: CT ABDOMEN PELVIS W CON 11/27/2022 12:14 PM FINDINGS: Liver: Normal. No mass. Gallbladder and bile ducts: Normal. No calcified stones. No ductal dilation. Pancreas: Normal. No ductal dilation. Spleen: Normal. No splenomegaly. Adrenal glands: Normal. No mass. Kidneys and ureters: Normal. No hydronephrosis. Stomach and bowel: Unremarkable. No obstruction. No mucosal thickening. Appendix: No evidence of appendicitis. Intraperitoneal space: Unremarkable. No free air. No significant fluid collection. Vasculature: Unremarkable. No abdominal aortic aneurysm. Lymph nodes: Unremarkable. No enlarged lymph nodes. Urinary bladder: Unremarkable as visualized. Reproductive: Unremarkable as visualized. Bones/joints: Unremarkable. No acute fracture. Soft tissues: Unremarkable. IMPRESSION: No acute findings.
--- NOTE | 2023-07-04 00:44 | PC.NURSE ---
pt reports back pain being much better, rates pain 5/10, able to recline back now.
[2023-07-04 01:38] VITALS: BP 155/94; PULSE 103; RESP 16; TEMP 36.8; O2SAT 98
== END 2023-07-04 01:39 | disposition home or self-care (01) ==
PROVIDERS: Emergency Provider Emergency Medicine
DX: M54.42 Lumbago with sciatica, left side (principal); R30.0 Dysuria; R35.0 Frequency of micturition; F43.10 Post-traumatic stress disorder, unspecified
CPT/HCPCS: 74177; 80048; 81001; 84703; 85025; 96374; 99285; Q9967

== ENCOUNTER 2023-09-03 21:47 | Emergency (ER) | payer OTHER, SELFPAY ==
[2023-09-03 21:47] VITALS: BP 127/67; PULSE 129; RESP 20; TEMP 36.7; O2SAT 96; BMI 36.3
[2023-09-03 22:00] VITALS: BP 114/58; PULSE 88; RESP 25; O2SAT 94
--- NOTE | 2023-09-03 22:01 | PC.NURSE ---
Contacted poison control, spoke with Rianna. Updated on patient status and situation. Advised that poison control does not recommend activated charcoal at this time due to patient's drowsiness. Observe for anticholinergic effects including, tachycardia, agitation. Watch for seizures, coma, airway deterioration, dysrhythmias. Recommend a minimum of 6 hours monitoring unless remaining symptomatic then monitor until baseline. Recommend symptomatic treatment. Notified Dr. Hampton, entered recommended orders at this time.
[2023-09-03 22:15] VITALS: BP 107/59; PULSE 98; RESP 22; O2SAT 95
--- NOTE | 2023-09-03 22:23 | ECG_ITS ---
APPROVED REPORT Exam: Resting ECG HR:96 bpm ECG Measurements Heart Rate 96 AXES MT 161 P 18 QRSd 85 QRS 10 QT 371 T 2 QTc 425 Conclusion SINUS RHYTHM POSSIBLE LEFT ATRIAL ENLARGEMENT [-0.1mV P-WAVE IN V1/V2] NONSPECIFIC T-WAVE ABNORMALITY BORDERLINE ECG UNCONFIRMED REPORT Electronically signed by : Rashawn Espino MD 09/04/2023 18:25:53
--- NOTE | 2023-09-03 22:25 | PC.NURSE ---
in room talking with patient at this time.
--- NOTE | 2023-09-03 22:26 | HMH.EDGENADL ---
Discharge Plan Disposition Patient Disposition: Still a Patient Prescriptions Prescriptions: No Action fluticasone propionate [Flonase Allergy Relief] 50 mcg/actuation spray,suspension 1 spray intranasal QDAY 30 Days Qty: 9.9 0RF Rx Instructions: administer into each nostril chlorpromazine 100 mg tablet 100 mg PO .COMPLEX Qty: 60 2RF Rx Instructions: 100 mg orally take 1/2 tablet (50mg) in the am; and 1 tablet at bedtime; venlafaxine [Effexor XR] 75 mg capsule,extended release 24hr 75 mg PO DAILY Qty: 30 1RF ergocalciferol (vitamin D2) 1,250 mcg (50,000 unit) capsule 1,250 mcg PO WEEKLY Qty: 14 3RF cholecalciferol (vitamin D3) 50 mcg (2,000 unit) capsule 50 mcg PO DAILY Qty: 90 3RF methocarbamol 750 mg tablet 750 mg PO Q8H Qty: 20 0RF lidocaine 5 % adhesive patch,medicated 1 patch topical DAILY Qty: 5 0RF Rx Instructions: 1 patch topically; apply to most painful area for up to 12 hours, then remove for 12 hours. Referrals Follow up/Referrals: Provider,Referral, [Primary Care Provider] - See instructions Activity Restrictions/Add. Instructions Additional Instructions/Restrictions: We had an extensive discussion with you your sister and [id number] about your final disposition. You currently are denying any suicidal ideations and we have a safety plan with you and your family to remove all weapons medications from your premises and for you to be transported by your family to the counseling facility in [place] that more closely aligns with your culture. There is understanding from everyone that you are still very high risk we asked that you come back to the emergency department if you decide not to go to this facility discussed or if you have any recurrence of suicidal thoughts or attempts. You were observed for an extended period of time from medical standpoint regarding your overdose and have been medically cleared from that standpoint. Clinical Impressions Clinical Impression: Suicide attempt by drug overdose AMS (altered mental status) Qualifiers: Altered mental status type: delirium Qualified Code(s): R41.0 - Disorientation, unspecified Discharge ED Provider: Corrie Younger General Adult HPI <Klever Hampton MD - Last Filed: 09/04/23 00:11> General Chief complaint: Psychiatric Symptoms Stated complaint: Suicidal Time Seen by Provider: 09/03/23 22:00 Mode of Arrival: EMS Source of Information: Patient and EMS Limitations: No Limitations Description of Symptoms (Recalled from ER Triage Doc. by RN): Patient arrives via EMS after ingesting 20 50mg thorazine pills at approximately 2049 in an attempt to commit suicide. Patient reports having problems with family at home and also attempting to suffocate herself by tying a pillowcase to her neck. History of Present Illness HPI narrative: 23-year-old female, history of psychosis on Thorazine presents after apparent intentional overdose of Thorazine. Patient reportedly took 20 tablets of 50 mg Thorazine at approximately 2049. On arrival patient is drowsy but arousable. She reports taking the medication in attempt to kill herself but she is unwilling to tell me why. She reports that she has history of psychosis and sometimes hears and sees things that are not there. She denies any acute active hallucinations at this time. She denies any chest pain abdominal pain nausea vomiting headache neck pain etc. Per report, patient tied a pillowcase around her neck in an attempt to separate herself. She patient does not report this to me. Related Data Previous Rx's Medication Instructions Recorded fluticasone propionate 50 1 spray intranasal QDAY 30 days 10/17/22 mcg/actuation nasal #9.9 grams spray,suspension (Flonase Allergy Relief) cholecalciferol (vitamin D3) 50 50 mcg PO DAILY #90 caps 10/19/22 mcg (2,000 unit) capsule ergocalciferol (vitamin D2) 1,250 1,250 mcg PO WEEKLY #14 caps 10/19/22 mcg (50,000 u
[2023-09-03 22:30] VITALS: BP 113/67; PULSE 97; RESP 25; O2SAT 92
--- NOTE | 2023-09-03 22:37 | PC.NURSE ---
One to one sitter remains at bedside. Applied seizure precautions due to risk of seizure noted by poison control.
[2023-09-03 22:39] LABS: Basophils % 0.3 % (0.1-2.0); Eosinophils # 0.1 K/mm3 (0.0-0.4); Eosinophils % 1.6 % (0.1-12.0); Hematocrit 38.8 % (37.0-47.0); Hemoglobin 13.3 g/dL (12.2-16.2); Lymphocytes # 1.9 K/mm3 (0.7-4.5); Mean Corpuscular HGB Conc 34.3 g/dL (31.8-35.4); Mean Corpuscular Hemoglobin 29.4 pg (27.0-31.2); Mean Corpuscular Volume 85.7 fl (81-99); Mean Platelet Volume 7.7 fl (7.4-10.4); Monocytes # 0.5 K/mm3 (0.1-1.0); Monocytes % 6.4 % (1.7-9.3); Neutrophils # 4.8 K/mm3 (1.8-7.8); Neutrophils % 65.7 % (37.0-80.0); Platelet Count 232 K/mm3 (142-424); Red Blood Count 4.52 M/mm3 (4.20-5.40); Red Cell Distribution Width 13.7 % (11.5-17.5); White Blood Count 7.3 K/mm3 (4.8-10.8)
[2023-09-03 22:55] LABS: Chloride 104 mmol/L (98-107); Potassium 3.2 mmoL/L (3.5-5.1); Sodium 138 mmol/L (136-145)
[2023-09-03 22:57] LABS: Blood Urea Nitrogen 9 mg/dl (7-17); Creatinine Clearance Estimated 203 mL/min (50-200); Estimated Glomerular Filt Rate 105 ml/min (>60); GFR (African American) 127 ML/MIN (>60)
[2023-09-03 22:58] LABS: Alanine Aminotransferase 30 U/L (12-78); Albumin Level 4.7 g/dl (3.5-5.0); Albumin/Globulin Ratio 1.5 (1.1-1.8); Alkaline Phosphatase 55 U/L (38-126); Anion Gap 14.2 mEq/L (5-15); Aspartate Amino Transferase 35 U/L (14-36); Bilirubin,Total 0.4 mg/dl (0.2-1.3); Calcium 9.1 mg/dl (8.4-10.2); Carbon Dioxide 23 mmol/L (22.0-30.0); Globulin 3.1 g/dL (1.3-3.2); Glucose 120 mg/dl (74-100); Total Protein,Serum 7.8 g/dl (6.3-8.2)
[2023-09-03 23:00] VITALS: BP 119/67; PULSE 95; RESP 25; O2SAT 95
[2023-09-03 23:02] LABS: Acetaminophen < 10 ug/ml (10-30); Salicylate < 1.0 mg/dL (2.0-20.0)
[2023-09-03 23:08] LABS: HCG Qualitative, Serum Negative (Negative)
[2023-09-03 23:09] LABS: Ethyl Alcohol < 10 mg/dl (0-10)
[2023-09-03 23:20] LABS: Microscopic, Urine URINE MICROSCOPIC (MICROSCOPIC)
[2023-09-03 23:28] LABS: Appearance,Urine CLEAR (Clear); Bilirubin,Urine Negative (Negative); Blood, Urine 2+ (Negative); Color,Urine YELLOW (Yellow); Glucose,Urine (UA) Negative (Negative); Ketones,Urine Negative (Negative); Leukocyte Esterase,Urine Negative (Negative); Nitrate,Urine Negative (Negative); PH,Urine 6.5 (5.0-8.5); Protein,Urine Negative (Negative); Specific Gravity, Urine 1.015 (1.005-1.030); Urobilinogen,Urine 0.2 EU/dl (0.2)
[2023-09-03 23:30] VITALS: BP 110/64; PULSE 90; RESP 19; O2SAT 94
[2023-09-03 23:36] LABS: Barbiturates Screen,Urine Negative ng/ml (<200); Benzodiazepines Screen,Urine Negative ng/ml (<200)
[2023-09-03 23:37] LABS: Amphetamine/Metha Screen,Urine Negative ng/ml (<1000)
[2023-09-03 23:38] LABS: Cannabinoid Screen,Urine Negative ng/ml (<50); Methadone Screen,Urine Negative ng/ml (<300)
[2023-09-03 23:39] LABS: Cocaine Screen,Urine Negative ng/ml (<300)
[2023-09-03 23:40] LABS: Opiate Screen,Urine Negative ng/ml (<300); Phencyclidine Screen,Urine Negative ng/ml (<25)
--- NOTE | 2023-09-03 23:46 | PC.NURSE ---
Once patient is out of her acute medical observation period per poison control then can pursue psychiatric evaluation.
[2023-09-04] VITALS (31 sets, daily range): BP systolic 103–144; BP diastolic 55–83; PULSE 69–117; RESP 13–20; TEMP 36.7; O2SAT 94–99
--- NOTE | 2023-09-04 00:17 | PC.NURSE ---
Spoke with Rianna from Poison Control. Gave updated set of vital signs, lab values, and ECG readings. Poison control reports they do not anticipate much sudden change, but to continue monitoring for the minimum of 6 hours and call if anything changes.
--- NOTE | 2023-09-04 03:56 | PC.NURSE ---
Contacted [facility] regarding possible transfer. Awaiting response.
--- NOTE | 2023-09-04 04:26 | PC.NURSE ---
Called Bozena with [facility] intake, to get update. She is still waiting the fax to come through and will call us back
--- NOTE | 2023-09-04 04:41 | PC.NURSE ---
Psychiatric evaluation via zoom in progress.
--- NOTE | 2023-09-04 04:51 | PC.NURSE ---
Patient finished speaking with [facility]. Awaiting their decision
--- NOTE | 2023-09-04 05:08 | PC.NURSE ---
Bozena with [facility] states Dr. Cedeño did not accept patient and has determined patient should be an involuntary hold to [facility].
--- NOTE | 2023-09-04 05:19 | PC.NURSE ---
Addendum entered by Aleksander Bills RN 09/04/23 05:21: Judge Mayfield did not answer his phone. left and will attempt to call back Original Note: Involuntary hold paperwork completed and sent to Judge Mayfield. He has been contacted and will be sending these forms back to us
--- NOTE | 2023-09-04 05:49 | PC.NURSE ---
Attempted to call Judge Mayfield again. No answer at this time
--- NOTE | 2023-09-04 07:52 | PC.NURSE ---
Called Judge Mayfield. He stated to call his office at 8am to get the fax number to the court house where he will be today. States he will be there in 30 minutes. Will call his office shortly.
--- NOTE | 2023-09-04 08:10 | PC.NURSE ---
spoke with janusz branham office. fax to [facility] is . she also gave me [facility] as well to be safe in case it doesn't get done prior to him leaving [facility]. she states he will be in [facility] at 10:30am. that fax number is . paperwork faxed to [facility] at this time. Dr Steiner is also speaking with family at this time. they are requesting she go to a facility in [place].
--- NOTE | 2023-09-04 08:13 | PC.NURSE ---
Dr. Steiner and Lucrecia Zhu RN at to talk with patient.
--- NOTE | 2023-09-04 08:20 | PC.NURSE ---
Addendum entered by Lucrecia Lagunas RN 09/04/23 17:44: at 8:20am this pt was taken off of one on one observation per MD Original Note: Brother in law and sister approached me to discuss care of pt. Brother in law states they would like for her to go home and go to a facility that is more of their culture in [place]. Sister states they sent another sister there and it really helped her, she is and with 2 children now and she told the sister, that she needs to go here. Pt is willing to go to this recommended facility from family, states at this time she wants to do no harm to herself. family is aware of attempts of suicide in the past and states she will be with observation 24-7 at home and remove any weapons so there is no access from pt to these. at with pt and family along with myself to discuss this plan who whom pt agreed with above information.
--- NOTE | 2023-09-04 08:50 | PC.NURSE ---
dr bond's office aware of situation and pt going home with family and to be transported to a facility of their choice.
--- NOTE | 2023-09-04 09:00 | PC.NURSE ---
Maryann at Judge Mayfield's office stated he would like for them to talk with [facility] and explain the situation with them to make sure they are agreeable to that since he did order for her to be evaluated. pt and family was still at facility so this was discussed with them and they were agreeable with it. pt placed back in room for [facility] to be contacted.
--- NOTE | 2023-09-04 09:40 | PC.NURSE ---
waiting on signed paperwork from judge bond before calling [facility].
--- NOTE | 2023-09-04 10:15 | PC.NURSE ---
called Judge Mayfield to let him know we haven't received his signed paperwork back via fax. he states he has sent it and has a conformation to show it. verified he sent it to the correct fax number and he did. he states he will resend the paperwork.
--- NOTE | 2023-09-04 10:46 | PC.NURSE ---
received fax from judge bond
--- NOTE | 2023-09-04 10:50 | PC.NURSE ---
called [facility] and they stated someone is working on it and will call us back shortly.
--- NOTE | 2023-09-04 11:11 | PC.NURSE ---
refaxed requested paperwork to [facility].
--- NOTE | 2023-09-04 11:19 | PC.NURSE ---
Family updated that we are waiting on [facility] to call and do evaluation. [facility] stated that they just got a pt infront of her so it could be an hour before they can call back. House aware that pt was to be DC per MD we are just waiting on evaluation from [facility] per Judge Mayfield. PT is in eye view from the nurses station at this time.
--- NOTE | 2023-09-04 12:45 | PC.NURSE ---
CALLED [facility] TO CHECK ON THE STATUS OF WHEN SOMEONE WOULD BE REACHING OUT. THE LADY I SPOKE WITH SAID THEY HAD SOMEONE CALL IN SICK SO ONE PERSON IS FILLING IN FOR 2 PEOPLE TODAY. SHE WILL HAVE THE LADY ON THE CASE CONTACT ME WITH AN UPDATE. WILL UPDATE PT AND FAMILY.
--- NOTE | 2023-09-04 13:51 | PC.NURSE ---
SPEAKING WITH ANGELA AT [facility]. ANGELA IS ALSO SPEAKING WITH SISTER OVER THE PHONE ASKING HER QUESTIONS REGARDING HER SISTER.
--- NOTE | 2023-09-04 14:27 | PC.NURSE ---
ANGELA WITH [facility] SPOKE WITH PT AND WANTS HER TO BE PLACED INPATIENT AT [facility]. PT STATES SHE DOESN'T WANT TO GO. SHE DOESN'T LIKE THE FACILITY. SHE HAS BEEN THERE IN THE PAST. SHE WOULD LIKE TO LOOK INTO THE PLACE IN [place] IF POSSIBLE THAT UNDERSTANDS HER VALUES AND BELIEFS. ANGELA IS AGREEABLE TO LOOK INTO THIS FACILITY [facility]. ANGELA WILL CONTACT THIS FACILITY AND GET BACK WITH US. ER AWARE.
--- NOTE | 2023-09-04 15:06 | PC.NURSE ---
SPEAKING WITH ANGELA AT [facility]. SHE STATES SHE IS FAXING PAPERWORK OVER SHORTLY.
--- NOTE | 2023-09-04 15:29 | PC.NURSE ---
SPOKE WITH LLOYD IN REGISTRATION AT [facility] TO LET THEM KNOW THE PATIENT WOULD BE LEAVING OUR FACILITY SHORTLY AND HEADING THEIR WAY. SHE SAID SHE SPOKE WITH HOUSE AND THEY STATED THERE ARE NO BEDS SO SHE WILL HAVE TO GO CHECK IN TO THE ED. NO ONE WAS WILLING TO TAKE REPORT. WILL SEND A PACKET OF INFORMATION WITH THE PT.
--- NOTE | 2023-09-04 15:41 | PC.NURSE ---
FAMILY STATES THEY HAVE TO GO HOME AND GET SOME THINGS THEN THEY WILL BE BACK TO GET HER. SHOULD RETURN AROUND [phone].
--- NOTE | 2023-09-04 15:45 | PC.NURSE ---
pt resting in bed call light at bs
--- NOTE | 2023-09-04 16:55 | PC.NURSE ---
pt ambulated to restroom
== END 2023-09-04 18:23 | disposition still patient (30) ==
PROVIDERS: Emergency Medicine; Emergency Provider Emergency Medicine
DX: T43.3X2A Poisoning by phenothiazine antipsychotics and neuroleptics, intentional self-harm, initial encounter (principal); F43.12 Post-traumatic stress disorder, chronic; F44.9 Dissociative and conversion disorder, unspecified; E87.6 Hypokalemia; Z62.819 Personal history of unspecified abuse in childhood
CPT/HCPCS: 80053; 80305; 80329; 81001; 84703; 85025; 93005; 99285